=== PATIENT | male | born 1965 | race African-American/Black ===

== ENCOUNTER 2018-05-12 18:16 | Emergency (ER) | payer SELFPAY ==
[~2018-05-12] VITALS: Ht 177.8 cm; Wt 75.0 kg
[2018-05-12 20:30] VITALS: BP 121/73
== END 2018-05-12 21:10 | disposition short-term general hospital (02) ==
LOC: EMS 18:17
DX: S02.32XA Fracture of orbital floor, left side, initial encounter for closed fracture (principal); F12.90 Cannabis use, unspecified, uncomplicated; F17.210 Nicotine dependence, cigarettes, uncomplicated; Y04.0XXA Assault by unarmed brawl or fight, initial encounter; Y93.89 Activity, other specified; Y92.89 Other specified places as the place of occurrence of the external cause; Y99.8 Other external cause status
CPT/HCPCS: 70450; 70486; 72125; 99285